=== PATIENT | male | born 1945 | race Caucasian/White ===

== ENCOUNTER 2016-12-07 22:04 | Inpatient (IN) | payer MEDICARE, BC ==
[~2016-12-07 22:04] MED LIST: ASPIR-LOW81 MG PO; COREG; COREG12.5 MG PO; CRESTOR; CRESTOR20 M1 PO; JANUMET 50-1,01 EACH PO; LANTUS100 U/ML SC; LANTUS100 UNITS/ SC; LISINOPRIL; MULTIVITAMIN1 TAB PO; NORCO 5/3251 TAB PO; PLAVIX75 M1 PO; PRINIVIL10 M1 PO; TRAZODONE HCL150 M1 PO; TRAZODONE HCL150 MG; TRICOR145 M1 PO; WELLBUTRIN SR150 M2 PO; WELLBUTRIN SR150 MG
[2016-12-07 22:45] LABS: BASO % 0.3 % (0-2); EOS % 1.6 % (0-7); EOSINOPHIL ABSOLUTE COUNT 0.1 tho/cmm (0.0-0.7); HCT-HEMATOCRIT 38.3 % (36.0-53.5); HGB-HEMOGLOBIN 12.8 gm/dl (13.5-17.0); IMMATURE GRANULOCYTES ABSOLUTE 0.02 tho/cmm (0-0.03); IMMATURE GRANULOCYTES PERCENT 0.3 % (0-0.3); LYMPH % 22.4 % (20-45); LYMPH ABSOLUTE COUNT 1.6 tho/cmm (0.8-4.5); MCH (MEAN CORPUSCULAR HGB) 29.4 pg (28.0-32.0); MCHC MEAN CORPUSCULAR HGB CONC 33.4 % (32.0-36.0); MCV (MEAN CELL VOLUME) 87.8 fl (82.0-96.0); MEAN PLATELET VOLUME 10.3 cmc (9.4-12.4); MONO % 7.5 % (0-12); MONOCYTE ABSOLUTE COUNT 0.6 tho/cmm (0.0-1.2); NEUTROPHILS % 67.9 % (40-80); PLATELET COUNT 212 tho/cmm (150-450); RED BLOOD COUNT 4.36 mil/cmm (4.40-5.70); RED CELL DISTRIBUTION WIDTH 12.9 % (12.4-16.4); WHITE BLOOD COUNT 7.3 tho/cmm (4.0-10.0)
[2016-12-07 23:00] LABS: ANION GAP 14 mmol/L (0-20); BLOOD UREA NITROGEN 19 mg/dl (6-24); CALCIUM 8.9 mg/dl (8.5-10.5); CARBON DIOXIDE-VENOUS 24 mmol/L (22-32); CHLORIDE 105 mmol/l (96-110); CREATININE 1.15 mg/dl (0.60-1.30); GLUCOSE 221 mg/dL (70-110); POTASSIUM 4.3 mmol/L (3.7-5.1); SODIUM 139 mmol/L (135-145); eGFR VALUE FOR BLACK 75 mL/Min
[2016-12-08 01:55] LABS: ALBUMIN 3.6 g/dl (3.5-5.0); ALKALINE PHOSPHATASE 81 U/L (33-138); ALT/SGPT 28 U/L (12-78); AST/SGOT 23 U/L (10-40); BILIRUBIN,TOTAL 0.3 mg/dl (0.0-1.5); MAGNESIUM 1.9 mg/dl (1.8-2.6); eGFR VALUE FOR BLACK 76 mL/Min
[2016-12-08 02:11] LABS: CREATINE PHOSPHOKINASE (CPK) 183 U/L (35-232)
[2016-12-08 04:03] LABS: CKMB 7.8 ng/ml (<3.6); CREATINE PHOSPHOKINASE (CPK) 172 U/L (35-232)
[2016-12-08 06:58] LABS: ANION GAP 10 mmol/L (0-20); BLOOD UREA NITROGEN 14 mg/dl (6-24); CALCIUM 9.1 mg/dl (8.5-10.5); CARBON DIOXIDE-VENOUS 28 mmol/L (22-32); CHLORIDE 109 mmol/l (96-110); CREATININE 0.98 mg/dl (0.60-1.30); GLUCOSE 141 mg/dL (70-110); POTASSIUM 4.9 mmol/L (3.7-5.1); SODIUM 142 mmol/L (135-145); eGFR VALUE FOR BLACK >90 mL/Min
[2016-12-08 07:39] LABS: CKMB 8.7 ng/ml (<3.6)
[2016-12-08] MEDS ORDERED: WELLBUTRIN XL150 M1 PO (10:39)
[2016-12-08] MEDS ORDERED: ZETIA10 M1 PO (11:40)
[2016-12-09 06:24] LABS: BLOOD UREA NITROGEN 13 mg/dl (6-24); CREATININE 0.89 mg/dl (0.60-1.30); eGFR VALUE FOR BLACK >90 mL/Min
[2016-12-09] MEDS ORDERED: NITROSTAT0.4 M1 SL (11:12)
[2016-12-09] MEDS ORDERED: BRILINTA90 M1 PO (11:17)
== END 2016-12-09 12:30 | DRG 282 ==
LOC: EDMED 22:04 → EMR2 12-08 00:14 → PCUB 12-08 02:00
PROVIDERS: Emergency Medicine; Internal Medicine Cardiovascular Disease; Nurse Practitioner Family; ADMIT Internal Medicine
PROC: 4A023N7 Measurement of Cardiac Sampling and Pressure, Left Heart, Percutaneous Approach (ICD-10-PCS; principal; 2016-12-08)
PROC: B2111ZZ Fluoroscopy of Multiple Coronary Arteries using Low Osmolar Contrast (ICD-10-PCS; 2016-12-08)
PROC: 4A033BC Measurement of Arterial Pressure, Coronary, Percutaneous Approach (ICD-10-PCS; 2016-12-08)
DX: I21.4 Non-ST elevation (NSTEMI) myocardial infarction (principal); I73.9 Peripheral vascular disease, unspecified; E11.9 Type 2 diabetes mellitus without complications; I10 Essential (primary) hypertension; I25.10 Atherosclerotic heart disease of native coronary artery without angina pectoris; Z95.5 Presence of coronary angioplasty implant and graft; E78.5 Hyperlipidemia, unspecified; Z79.4 Long term (current) use of insulin; Z79.02 Long term (current) use of antithrombotics/antiplatelets; Z79.82 Long term (current) use of aspirin; Z87.891 Personal history of nicotine dependence
CPT/HCPCS: C1769; C1887; C1894; C8929; J0153; J1644; J1650; J1815; J2250; J3010; Q9967